=== PATIENT | male | born 2000 | race Caucasian/White ===

== ENCOUNTER 2021-04-06 23:39 | Emergency (ER) | payer SELFPAY ==
--- NOTE | 2021-04-07 00:28 | ER ---
Nurse's Notes [facility] Name: Sean Rodarte Age: 21 yrs Sex: Male : 2000 Arrival Date: 04/06/2021 Time: 23:45 Bed Waiting Private MD: Diagnosis: Presentation: 04/07 00:03 Chief complaint: Patient states: Nausea, headache, dizziness, body aches since 04/01. kg COVID + 04/02. Coronavirus screen: Vaccine status: Patient reports being unvaccinated. Ebola Screen: Patient negative for fever greater than or equal to 101.5 degrees Fahrenheit, and additional compatible Ebola Virus Disease symptoms Patient denies exposure to infectious person. Patient denies travel to an Ebola-affected area in the 21 days before illness onset. Initial Sepsis Screen: Does the patient meet any 2 criteria? No. Patient's initial sepsis screen is negative. Does the patient have a suspected source of infection? No. Patient's initial sepsis screen is negative. Risk Assessment: Do you want to hurt yourself or someone else? Patient reports no desire to harm self or others. Onset of symptoms was April 01, 2021. 00:03 Method Of Arrival: Ambulatory kg 00:03 Acuity: PAVAN 4 kg Triage Assessment: 00:06 General: Appears in no apparent distress. Behavior is calm, cooperative, appropriate kg for age, quiet. Pain: Complains of pain in Head Pain currently is 5 out of 10 on a pain scale. Quality of pain is described as aching. GI: Reports nausea. Historical: - Allergies: 00:06 No Known Allergies; kg - Home Meds: 00:06 None [Active]; kg - PMHx: 00:06 None; kg - PSHx: 00:06 None; kg - Immunization history:: Adult Immunizations not up to date, Client reports having NOT received the Covid vaccine. - Social history:: Smoking status: Patient denies any tobacco usage or history of. Screenin:07 Abuse screen: Denies threats or abuse. Denies injuries from another. Nutritional kg screening: No deficits noted. Tuberculosis screening: No symptoms or risk factors identified. Fall Risk None identified. Vital Signs: 00:03 BP 118 / 81; Pulse 108; Resp 18; Temp 101.9(O); Pulse Ox 98% on R/A; Weight 79.38 kg kg (R); Height 6 ft. 0 in. (182.88 cm) (R); Pain 12/08; 00:03 Body Mass Index 23.73 (79.38 kg, 182.88 cm) kg ED Course: 04/06 23:45 Patient arrived in ED. cf2 04/07 00:06 Triage completed. kg 00:07 Patient has correct armband on for positive identification. kg 00:07 No provider procedures requiring assistance completed. kg Administered Medications: 00:09 Not Given (Ordered in errorr): Zofran (Ondansetron) 2 mg IVP once; over 2 minutes kg 00:13 Drug: Ibuprofen 800 mg Route: PO; kg 00:13 Drug: Ondansetron 4 mg Route: PO; kg Outcome: 00:27 Patient left the ED. kg Signatures: Barrera Moser cf2 Desiree Luther, RN RN kg
[2021-04-07] MEDS ORDERED: ONDANSETRON 4 MG (ODT) TAB ONE (00:35)
[2021-04-07] MEDS ORDERED: IBUPROFEN 400 MG TAB ONE (00:35)
[2021-04-07 00:43] VITALS: BP 118/81; TEMP 101.9; O2SAT 98
== END 2021-04-07 00:27 | disposition left against medical advice (07) ==
LOC: ER 23:39
DX: Z53.21 Procedure and treatment not carried out due to patient leaving prior to being seen by health care provider (principal)
CPT/HCPCS: 99282